=== PATIENT | male | born 1955 | race Caucasian/White ===

== ENCOUNTER 2022-02-17 11:14 | Outpatient (CLI) | payer MEDICARE, SELFPAY ==
--- NOTE | 2022-02-17 11:29 | XR_ITS ---
WS: [id number] Right ankle, 3 views, 02/17/2022 Clinical Data: CONTUSION OF R ANKLE/UNSPECIFIED INJURY OF R ANKLE Comparison: None. Findings: No fractures or dislocations are seen. The ankle mortise is normal. The talus and calcaneus are unrem arkable. No soft tissue swelling over the medial or lateral malleolus is seen. XR/XR ankle RT min 3V* [id number] Impression: Negative right ankle.
== END 2022-02-17 11:15 | disposition home or self-care (01) ==
PROVIDERS: PCP Nurse Practitioner Family; Visit Provider Nurse Practitioner Family
DX: S90.01XA Contusion of right ankle, initial encounter (principal); X58.XXXA Exposure to other specified factors, initial encounter
CPT/HCPCS: 73610